=== PATIENT | female | born 1960 | race Caucasian/White ===

== ENCOUNTER 2017-02-16 13:40 | Emergency (ER) | payer OTHER ==
[2017-02-16 13:40] VITALS: BMI 28.3
[2017-02-16 13:58] VITALS: RESP 18
--- NOTE | 2017-02-16 15:33 | C.PDOC ---
History Of Present Illness Marcia Pablo is a 56 year old female, with a past medical history of diabetes and chronic arthritis, who presents to the emergency department complaining of chronic right arm pain. Patient states pain is chronic and presents herself with a patch in place with no pain relief. She describes the pain radiating throughout her arm, neck, and head. She reports taking Enbrel, Plaquenil, and Naprosyn for her arthritis. Patient denies any trauma, fever, chills, nausea, or vomit. PMD: Jordon Diaz Seen by Provider: 02/16/17 14:59 Chief Complaint (Nursing): Upper Extremity Problem/Injury History Per: Patient History/Exam Limitations: no limitations Onset/Duration Of Symptoms: Days (CHRONIC) Current Symptoms Are (Timing): Still Present Quality: "Pain" Severity: Moderate Past Medical History Reviewed: Historical Data, Nursing Documentation, Vital Signs Vital Signs: Last Vital Signs Temp 97.9 F 02/16/17 15:34 Pulse 86 02/16/17 15:34 Resp 18 02/16/17 15:34 BP 136/78 02/16/17 15:34 Pulse Ox 97 02/16/17 15:50 - Medical History PMH: Arthritis - [facility] Procedures CLOSED ENDOSCOPIC BIOPSY OF LARGE INTESTINE (05/21/13) ESOPHAGOGASTRODUODENOSCOPY [EGD] W/CLOSED BIOPSY (05/26/13) Family History: States: Unknown Family Hx - Social History Hx Tobacco Use: No Hx Alcohol Use: No Hx Substance Use: No - Immunization History Hx Tetanus Toxoid Vaccination: No Hx Influenza Vaccination: Yes Hx Pneumococcal Vaccination: No Review Of Systems Except As Marked, All Systems Reviewed And Found Negative. Constitutional: Negative for: Fever, Chills Gastrointestinal: Negative for: Nausea, Vomiting Musculoskeletal: Positive for: Arm Pain (chronic right arm pain radiating to neck and head) Physical Exam - Physical Exam Appears: Non-toxic, No Acute Distress Skin: Normal Color, Warm, Dry Head: Atraumatic, Normacephalic Eye(s): bilateral: Normal Inspection, PERRL, EOMI Ear(s): Bilateral: Normal Nose: Normal Throat: Normal Neck: Normal Extremity: Tenderness (Point tenderness to her right arm) ED Course And Treatment O2 Sat by Pulse Oximetry: 97 (RA) Pulse Ox Interpretation: Normal Medical Decision Making Medical Decision Making: Initial Plan: -Patient will be prescribed Lidocaine 4% 50 mL TOP Scribe Attestation The documentation for this encounter was entered by Randy Cordero acting as a scribe for Merissa RODRIGUEZ All medical record entries made by the Scribe were at my direction and personally dictated by me. I have reviewed the chart and agree that the record accurately reflects my personal performance of the history, physical exam, medical decision making, and the department course for this patient. I have also personally directed, reviewed, and agree with the discharge instructions and disposition. Disposition Counseled Patient/Family Regarding: Studies Performed, Diagnosis, Need For Followup, Rx Given - Disposition Referrals: Jordon Diaz MD [Staff Provider] - Disposition: HOME/ ROUTINE Disposition Time: 15:31 Condition: STABLE Additional Instructions: FOLLOW UP WITH PMD AND [employer] FOR FURTHER EVALUATION. IF SYMPTOMS GET WORSE OR ANY NEW CONCERNING SYMPTOMS DEVELOP RETURN TO ED. Prescriptions: Lidocaine 4% [Lidocaine 4% 50 ml Topical (or)] 50 ml TOP BID PRN #1 bottle PRN Reason: Pain, Moderate (4-7) Instructions: Arthritis (ED) Forms: [employer] [facility] (Lebanese) Print Language: MALTESE - Clinical Impression Clinical Impression: Arthritis
[2017-02-16 15:35] VITALS: BP 136/78; PULSE 86; TEMP 97.9
[2017-02-16 15:50] VITALS: O2SAT 97
== END 2017-02-16 15:58 | disposition home or self-care (01) ==
LOC: C.ER 13:40
DX: M13.88 Other specified arthritis, other site (principal)